=== PATIENT | female | born 1955 | race Caucasian/White ===

== ENCOUNTER → 2019-02-19 | Outpatient (REF) | payer BC, SELFPAY ==
[2019-02-22 14:07] LABS: HPV HYBRID CAPTURE II Negative (Negative)
== END ==
LOC: M LAB LCGH 11:55
PROVIDERS: ATTEND Nurse Practitioner Adult Health
DX: Z12.4 Encounter for screening for malignant neoplasm of cervix (principal)
CPT/HCPCS: 87624; G0123

== ENCOUNTER 2023-10-20 10:01 | Day surgery (SDC) | payer MEDICARE, BC ==
[~2023-10-20] VITALS: Ht 160 cm; Wt 77.0 kg
[2023-10-20] MEDS: NS 1,000 ML IV ONE (06:00)
[~2023-10-20 10:01] MED LIST: AMLO2.5T3 PO; CARV12.5 PO; CYCL1DRO10 OU; FAMO20TA PO; LOSA50TA28 PO; NEOM10OI OU; VITA100093 PO
[2023-10-20] MEDS ORDERED: fentaNYL 100 MCG/2 ML INJECTION As Ordered ONE (10:19)
[2023-10-20] MEDS ORDERED: propofoL 200 MG/20 ML VIAL As Ordered ONE (10:20)
[2023-10-20] MEDS ORDERED: LIDOCAINE 2% 100MG/5ML SDV (FOR ANES.) As Ordered ONE (12:03)
[2023-10-20 12:19] VITALS: BP 139/77; O2SAT 95
== END 2023-10-20 12:21 | disposition home or self-care (01) ==
LOC: M OPP 10:01
PROVIDERS: ATTEND Internal Medicine Gastroenterology
DX: K31.89 Other diseases of stomach and duodenum (principal); K21.9 Gastro-esophageal reflux disease without esophagitis; R12 Heartburn; R05.3 Chronic cough; J04.0 Acute laryngitis; I10 Essential (primary) hypertension; E11.9 Type 2 diabetes mellitus without complications; Z79.621 Long term (current) use of calcineurin inhibitor; Z79.899 Other long term (current) drug therapy; Z88.0 Allergy status to penicillin; Z88.2 Allergy status to sulfonamides
CPT/HCPCS: 43239; 88305; J3010